=== PATIENT | male | born 1965 | race Caucasian/White ===

== ENCOUNTER → 2018-10-17 | Outpatient (CLI) | payer OTHER ==
[~2018-10-17] MED LIST: ALEVE220 MG PO; PERCOCET PO; XARELTO10 MG PO
== END ==
LOC: CAT 11:43
DX: Z13.6 Encounter for screening for cardiovascular disorders (principal); E78.00 Pure hypercholesterolemia, unspecified; I25.10 Atherosclerotic heart disease of native coronary artery without angina pectoris

== ENCOUNTER 2019-01-10 08:02 | Day surgery (SDC) | payer BC, OTHER ==
[2018-12-26 09:18] LABS: HEMATOCRIT 45.7 % (42.0-52.0); HEMOGLOBIN 15.2 gm/dL (14.0-18.0); MCHC 33.2 g/dL (28.0-37.0); MCV 90.3 fL (80.0-100.0); RBC 5.06 mil/uL (4.50-6.00); RDW 13.1 % (10.5-14.5); WBC 6.3 thou/uL (4.0-11.0)
[2018-12-26 09:19] LABS: URINE BILIRUBIN NEGATIVE (Negative); URINE BLOOD NEGATIVE (Negative); URINE CLARITY CLEAR; URINE COLOR YELLOW; URINE GLUCOSE-RANDOM* NEGATIVE (Negative); URINE KETONES NEGATIVE (Negative); URINE LEUKOCYTES-REFLEX NEGATIVE (Negative); URINE NITRITE-REFLEX NEGATIVE (Negative); URINE PROTEIN (DIPSTICK) NEGATIVE (Negative); URINE SPECIFIC GRAVITY >= 1.030 (1.005-1.035); URINE UROBILINOGEN 0.2 E.U./dl (0.2-1.0)
[2018-12-26 09:27] LABS: ALBUMIN 3.9 g/dL (3.4-5.0); CALCIUM 8.9 mg/dL (8.5-10.1); CREATININE 0.9 mg/dL (0.7-1.3); POTASSIUM 4.1 mmol/L (3.5-5.1)
[2018-12-26 09:34] LABS: PROTIME 10.1 Seconds (9.3-11.4)
--- NOTE | 2018-12-26 16:45 | EKG ---
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: [facility] : 1965 Requested By: Jordan Doty Order Number: [id number] MD: Mike Bautista Measurements Intervals [place] Rate: 56 P: 18 NV: 168 QRS: -8 QRSD: 93 T: 4 QT: 408 QTc: 394 Interpretive Statements Sinus bradycardia Otherwise normal tracing No previous ECG available for comparison Electronically Signed On 12-26-2018 16:45:09 [employer] by Mike Bautista [email or web address] <ELECTRONICALLY SIGNED> By: Mike Bautista MD, [facility] 12/26/18 1645 0914 3 Mike Bautista MD, FACC /EPI
[~2019-01-10] VITALS: Ht 182.9 cm; Wt 93.4 kg
[~2019-01-10 08:02] MED LIST changes: +ADVIL200 M3 PO; +CBD OIL SUBLING; +CO Q-10200 MG PO; +LIPITOR10 MG PO; +ZYRTEC10 M4 PO
[2019-01-10 08:33] VITALS: BP 124/85
[2019-01-10 16:15] VITALS: BP 112/62
[2019-01-10 19:27] VITALS: BP 104/75
--- NOTE | 2019-01-11 03:55 | NUR ---
ASSUMED PT CARE AT 1900. PER REPORT FROM AM NURSE (TAQUERIA), PT WAS SUPPOSE TO GO HOME ON WEDNESDAY, BUT GOT PALE AMBULATING WITH PT & IT WAS DECIDED THAT HE STAY OVERNIGHT. REFUSES MORPHINE, JUST WANTS HYDROCODONE Q4. BOTH BAGS OF FLUIDS AND ANTIBIOTICS GIVEN. UP TO BATHROOM WITH WALKER. FAMILY AT BEDSIDE EARLIER. READY TO GO HOME TODAY.
[2019-01-11 04:25] VITALS: BP 110/64
[2019-01-11 05:44] LABS: HEMATOCRIT 37.8 % (42.0-52.0); HEMOGLOBIN 12.6 gm/dL (14.0-18.0); MCH 29.9 pg (26.0-34.0); MCHC 33.4 g/dL (28.0-37.0); MCV 89.5 fL (80.0-100.0); RBC 4.22 mil/uL (4.50-6.00); RDW 13.7 % (10.5-14.5); WBC 14.2 thou/uL (4.0-11.0)
[2019-01-11 08:04] VITALS: BP 104/60
--- NOTE | 2019-01-11 10:22 | NUR ---
INITIAL ASSESSMENT: Pt evaluated for d/c planning needs. Reviewed chart and spoke with nurse, PT and pt. Pt is alert and oriented. Pt lives in house with spouse and 4 children. Pt is employed. Pt has walker at home. Pt has made arrangements for outpatient PT to begin on Wednesday. Will remain available to assist as needed.
--- NOTE | 2019-01-11 10:26 | NUR ---
CONSULT [id number] WAS COMPLETED BY THIS FINANCIAL MANAGEMENT CONSULTANT. PATIENT WAS IN HIS ROOM SITTING IN HIS CHAIR NEXT TO HIS BED. HE SEEMED COMFORTABLE AND RELAXED. WE DID A BRIEF LIFE REVIEW.
--- NOTE | 2019-01-11 15:20 | NUR ---
ASSUMED PT CARE AT 0700. PT IS AOX4, RATES PAIN 3/10 AT THIS TIME. PT RECEIVED PAIN ANALGESIC ORDERED. VSS, DRESSING DRY & INTACT ON LEFT HIP, SCD'S IN PLACE. PT TOLERATING REG DIET, WALKS TO BATHROOM PER STANDBY ASSIST. ICE PACK APPLIED TO LEFT HIP. CALL LIGHT IN REACH/PERSONAL ITEMS. WILL CONTINUE TO MONITOR PT.
[2019-01-11 15:39] VITALS: BP 104/60
--- NOTE | 2019-01-16 08:58 | O ---
[facility] [place] [address] OPERATIVE REPORT Name: TREVER DELGADILLO Room #: [facility] MLeeann.#: [id number] Admission: 01/10/19 Attend Phys: Jordan Doty MD Discharge: 01/11/19 Date of : 69 Report #: [id number] THIS REPORT FOR: //name// CC: Jordan Gallegos DATE OF SERVICE: 01/10/2019 PREOPERATIVE DIAGNOSIS: Left hip osteoarthritis. POSTOPERATIVE DIAGNOSIS: Left hip osteoarthritis. PROCEDURE: Left total hip arthroplasty. SURGEON: Jordan Doty MD. FOOD AND BEVERAGE SERVER: Gracy Jain PA-C. INDICATIONS FOR FOOD AND BEVERAGE SERVER: Throughout the case, extensive retraction and manipulation of the hip including dislocation and reduction was required. This was afforded to me by my early childhood teacher assistant. ANESTHESIA: General. IMPLANTS: [employer] size 56 R3 acetabular cup with 1 acetabular screw, a size 14 high offset Synergy press fit stem and a size 40+0 Oxinium head. ESTIMATED BLOOD LOSS: 300 mL. COMPLICATIONS: None. SPECIMENS: None. CONDITION UPON LEAVING THE OPERATING ROOM: Stable. INDICATIONS FOR PROCEDURE: The patient is a 53-year-old gentleman with left hip osteoarthritis. He had failed conservative measures for this and after discussion with him, he elected for left total hip arthroplasty. DESCRIPTION OF PROCEDURE: Risks, benefits, alternatives, complications were discussed in detail with the patient including but not limited to risk of anesthesia, risk of damage to nerves, arteries, blood vessels, risk for infection, bleeding, risk for continued hip pain, leg length discrepancy, instability and need for reoperation. Informed consent was obtained from the patient. Left hip was appropriately marked in the preoperative holding area. IV Ancef was given for preoperative antibiotics. He was brought to the [address] [address] OPERATIVE REPORT Name: TREVER DELGADILLO Room #: DEP [facility]ont#: [id number] Admission: 01/10/19 Attend Phys: Jordan Doty MD Discharge: 01/11/19 Date of : 69 Report #: [id number] operating room and placed in supine position on operating room table. General anesthesia was induced without complication. He was then placed in the right lateral decubitus position with the left hip uppermost. Left hip and lower extremity were prepped and draped in normal sterile fashion. Timeout was performed properly identifying the patient and procedure as well as the instrumentation and implants. All in the operating room were in agreement. A standard posterior approach to the hip was made with 10-blade through the skin. Dissection was taken down to the fascia with Bovie cautery and Medley elevator was used to clean off the fascia. Fresh 10-blade was used to make a fascial incision. This was taken proximally and distally with curved Vann scissor. Charnley retractor was placed. Trochanteric bursa was taken down with Bovie cautery. Piriformis tendon was identified, tagged and taken down with Bovie. Short external rotators were also taken down with Bovie cautery. Capsulotomy was made and capsule ends were tagged for later repair. Hip was dislocated. There was extensive osteoarthritic change in femoral head. Femoral neck cut was made 1 cm proximal to lesser trochanter based on preoperative templating. Femoral head was removed. Deep acetabular retractors were placed. Labrum was removed sharply. Pulvinar was removed with Bovie cautery. Acetabulum was then sequentially reamed up to a size 56. At which point, there was excellent bleeding cancellous bone. A size 55 trial cup was placed, found to have a good fit. A final size 56 R3 acetabular cup was placed and seated. One acetabular screw was placed for backup fixation and polyethylene liner for a 40 head was placed. Attention was then turned to the femur. This was reamed and broached up to a size 14. At which point, the size 14 broach was stable, this was trialed with a high offset neck and a 40+0 head. Hip was reduced, taken through range of motion, found to be stable, found to have equal leg lengths. Hip was dislocated. Broach was removed and final size 14 high offset Synergy press fit stem was placed. This was then trialed again with a 40+0 head. Hip was reduced, taken through range of motion, found to be stable, found to have equal leg lengths. Hip was dislocated one last time and the trial head was removed and final size 40+0 Oxinium head was placed. Hip was reduced, taken through range of motion, found to be stable, found to have equal leg lengths. Wound was thoroughly irrigated with normal saline. Periarticular injection consisting of morphine, ropivacaine, epinephrine, Toradol was placed around the hip joint capsule. A gram of vancomycin was placed deep in the joint. The capsule and piriformis were repaired with 0 FiberWire. Fascia was closed with 0 Vicryl, skin was closed with 2-0 Vicryl, 3-0 Monocryl. Dermabond and a NEMO dressing was applied. The patient tolerated this procedure well and went to the recovery room under care of anesthesia postoperatively. <ELECTRONICALLY SIGNED> By: Jordan Doty MD 01/16/19 0858 [id number] 1222 Jordan Doty MD /nt
== END 2019-01-11 17:01 | disposition home or self-care (01) ==
LOC: OR 08:02 → TBA 08:02 → OR 08:37 → 4S 12:38 → OR 12:53 → ENTRNSPT 01-11 16:27 → OR 01-11 17:01
PROVIDERS: Orthopaedic Surgery
DX: M16.12 Unilateral primary osteoarthritis, left hip (principal); Z98.890 Other specified postprocedural states; Z79.899 Other long term (current) drug therapy; Z88.2 Allergy status to sulfonamides; Z88.8 Allergy status to other drugs, medicaments and biological substances
CPT/HCPCS: 10102; 50010; 50101; 50382; 50414; 53000; 53078; 53368; 54118; 56524; 56528; 56530; 57095; 57103; 62110; 62900; 70005

== ENCOUNTER → 2019-09-07 | Outpatient (CLI) | payer OTHER | LOC: CAT 11:08 | PROVIDERS: ATTEND Neuromusculoskeletal Medicine & OMM | DX: Z13.6 Encounter for screening for cardiovascular disorders (principal); I25.10 Atherosclerotic heart disease of native coronary artery without angina pectoris; E78.00 Pure hypercholesterolemia, unspecified ==

== ENCOUNTER → 2019-12-01 | Outpatient (CLI) | payer BC, OTHER | LOC: LAB 10:30 | PROVIDERS: ATTEND Anesthesiology | DX: Z01.812 Encounter for preprocedural laboratory examination (principal); Z20.828 Contact with and (suspected) exposure to other viral communicable diseases ==

== ENCOUNTER → 2020-02-05 | Outpatient (CLI) | payer BC, OTHER | LOC: LAB 12-01 06:46 | PROVIDERS: ATTEND Anesthesiology | DX: Z01.812 Encounter for preprocedural laboratory examination (principal); Z20.828 Contact with and (suspected) exposure to other viral communicable diseases ==